=== PATIENT | male | born 1975 | race Caucasian/White ===

== ENCOUNTER 2018-01-16 08:00 | Outpatient (CLI) | payer OTHER ==
[2018-01-16 12:16] LABS: BASOPHILS % (AUTO) 0.6 %; EOSINOPHILS # (AUTO) 0.1 10^3/uL (0.0-0.7); EOSINOPHILS % (AUTO) 1.8 %; HGB - HEMOGLOBIN 15.8 g/dL (14.0-18.0); LYMPHOCYTES # (AUTO) 1.9 10^3/uL (1.5-3.5); LYMPHOCYTES % (AUTO) 24.6 %; MEAN CORPUSCULAR HEMOGLOBIN 32.5 pg (27.0-31.0); MEAN CORPUSCULAR HGB CONC 34.2 g/dL (32.0-36.0); MEAN CORPUSCULAR VOLUME 94.9 fL (80.0-94.0); MEAN PLATELET VOLUME 8.1 fL (7.4-11.4); MONOCYTES # (AUTO) 0.7 10^3/uL (0.0-1.0); MONOCYTES % (AUTO) 9.3 %; NEUTROPHILS # (AUTO) 4.9 10^3/uL (1.5-6.6); NEUTROPHILS % (AUTO) 63.7 %; PLT - PLATELET COUNT 218 10^3/uL (130-450); RED BLOOD COUNT 4.87 10^6/uL (4.70-6.10); WHITE BLOOD COUNT 7.8 x10^3/uL (4.8-10.8)
[2018-01-16 12:31] LABS: ALBUMIN 4.7 g/dL (3.2-5.5); ALBUMIN/GLOBULIN RATIO 1.7 (1.0-2.2); ALKALINE PHOSPHATASE 71 IU/L (42-121); ALT ALANINE AMINOTRANSFERASE 19 IU/L (10-60); AST ASPARTATE AMINOTRANSFERASE 29 IU/L (10-42); BILIRUBIN,TOTAL 0.7 mg/dL (0.2-1.0); BUN - BLOOD UREA NITROGEN 14 mg/dL (6-20); CALCIUM 9.3 mg/dL (8.5-10.3); CARBON DIOXIDE - CO2 23 mmol/L (21-32); CHLORIDE 104 mmol/L (101-111); CHOL/HDL RATIO 5.5 (<5.0); CHOLESTEROL 224 mg/dL; CREATININE 0.8 mg/dL (0.6-1.2); GFR - MDRD 106 (>89); GLUCOSE 90 mg/dL (70-100); HDL CHOLESTEROL 41 mg/dL; LDL CHOLESTEROL,CALCULATED 132 mg/dL; LDL/HDL RATIO 3.2 (<3.6); SODIUM 138 mmol/L (135-145); TOTAL PROTEIN 7.5 g/dL (6.7-8.2); VLDL CHOLESTEROL 51 mg/dL
== END 2018-01-16 08:01 | disposition home or self-care (01) ==
LOC: LAB.WCP 08:00
PROVIDERS: ATTEND Physician Assistant Medical
DX: Z00.00 Encounter for general adult medical examination without abnormal findings (principal); I10 Essential (primary) hypertension; E78.5 Hyperlipidemia, unspecified; Z12.5 Encounter for screening for malignant neoplasm of prostate
CPT/HCPCS: 36415; 80053; 80061; 83721; 84153; 84443; 85025

== ENCOUNTER 2020-09-25 18:39 | Emergency (ER) | payer MEDICAID, OTHER ==
[2020-09-25 18:45] VITALS: BP 158/97
[2020-09-25] MEDS ORDERED: BACITRACIN ZINC OINT 1 PACKET TOP STA (18:55)
[2020-09-25] MEDS ORDERED: LIDOCAINE 1%-EPI 1:100000 20 ML MDV SUBQ STA (18:55)
--- NOTE | 2020-09-25 19:17 | ED Physician Documentation ---
History of Present Illness - Stated complaint Stated Complaint: RT SIDE FACE LAC - Chief complaint Chief Complaint: Laceration - History obtained from History obtained from: Patient - History of Present Illness Timing: Today Pain level max: 0 Pain level now: 0 - Additonal information Additional information: 45-year-old male presents to the emergency department stating that he sustained a laceration to the right cheek when he tried to lift his dog out of his semitruck tonight. Nothing makes it better or worse. Tetanus up-to-date. No other injuries Review of Systems Constitutional: denies: Fever, Chills Neurologic: denies: Focal weakness, Numbness PD PAST MEDICAL HISTORY - Past Medical History Cardiovascular: Hypertension - Past Surgical History General: Appendectomy Ortho: Spine surgery - Present Medications Home Medications: Ambulatory Orders Medication Instructions Recorded Confirmed No Known Home Medications 09/25/20 09/25/20 - Allergies Allergies/Adverse Reactions: Allergies Allergy/AdvReac Type Severity Reaction Status Date / Time Penicillins Allergy Unknown Verified 09/25/20 18:42 - Social History Does the pt smoke?: Yes Smoking Status: Current every day smoker Does the pt drink ETOH?: No Does the pt have substance abuse?: No - Immunizations Immunizations are current?: Yes PD ED PE NORMAL - Vitals Vital signs reviewed: Yes - General General: Alert and oriented X 3, No acute distress - HEENT HEENT: PERRL, EOMI, Moist mucous membranes - Neck Neck: Supple, no meningeal sign - Respiratory Respiratory: No respiratory distress - Derm Derm: Warm and dry - Neuro Neuro: Alert and oriented X 3 PD ED PE EXPANDED - HEENT HEENT Visual: 1 - laceration (2 cm, linear. Neurovascular intact. Subcutaneous) Results - Vitals Vitals: Vital Signs - 24 hr 09/25/20 18:42 Temperature 37 C Heart Rate 112 H Respiratory 16 Rate Blood Pressure 158/97 H O2 Saturation 98 Oxygen O2 Source Room air Procedures - Laceration (location) Right cheek Length in cm: 2 Wound type: Linear, Into subcut fat, Clean Neurovascular status: Sensory intact, Motor intact, Vascular intact Anesthesia: Lidocaine 1% with epi Wound Preparation: Irrigated copiously NS, Wound explored, To the base Skin layer closure: Nylon, Interrupted, Size #-0 - enter number (5) Other: Patient tolerated well, No complications, Neurovascular intact, Tetanus UTD Complexity: Simple PD MEDICAL DECISION MAKING - ED course Complexity details: considered differential, d/w patient ED course: Laceration repaired. Tolerated well. Warnings of infection and instructions on wound care given at bedside. Also counseled on how to minimize scarring. Patient counseled regarding signs and symptoms for which I believe and urgent re-evaluation would be necessary. Patient with good understanding of and agreement to plan and is comfortable going home at this time This document was made in part using voice recognition software. While efforts are made to proofread this document, sound alike and grammatical errors may occur. Departure - Departure Disposition: 01 Home, Self Care Clinical Impression: Facial laceration Qualifiers: Encounter type: initial encounter Qualified Code(s): S01.81XA - Laceration without foreign body of other part of head, initial encounter Condition: Good Instructions: ED Laceration Facial Sutr Tape Follow-Up: Sloane Pablo PA-C [Primary Care Provider] - Within 1 week Comments: Return if you notice redness, swelling or drainage from the wound. Keep the wound clean. The sutures should be removed in approximately 5 days with your doctor or here. Discharge Date/Time: 09/25/20 19:27
== END 2020-09-25 19:27 | disposition home or self-care (01) ==
LOC: ED 18:39
DX: S01.411A Laceration without foreign body of right cheek and temporomandibular area, initial encounter (principal); W54.1XXA Struck by dog, initial encounter; I10 Essential (primary) hypertension; F17.200 Nicotine dependence, unspecified, uncomplicated
CPT/HCPCS: 12011; 99282; A9270

== ENCOUNTER 2024-04-18 19:37 | Emergency (ER) | payer MEDICAID ==
[2024-04-18 20:34] VITALS: BP 128/95; O2SAT 97
--- NOTE | 2024-04-18 22:06 | ED Physician Documentation ---
PD HPI SKIN - Stated complaint Stated Complaint: RT LOWER BACK BUMP - Chief complaint Chief Complaint: Wound - History obtained from History obtained from: Patient - Additional information Additional information: The pt comes to the ED with CC of "bump near my anus", and is concerned that a tick may have gotten in there. He states he just came back from a backpacking trip in [facility], and that there were lots of ticks over there. He has had tick bites before, and noticed a bump when he was washing today. Since he can't see what is there, he wanted to get checked. He has noticed some clear drainage coming from the area. No other complaints at this time. PD PAST MEDICAL HISTORY - Past Medical History Past Medical History: Yes Cardiovascular: Hypertension - Past Surgical History Past Surgical History: Yes General: Appendectomy Ortho: Spine surgery - Present Medications Home Medications: Ambulatory Orders Medication Instructions Recorded Confirmed No Known Home Medications 09/25/20 04/18/24 - Allergies Allergies/Adverse Reactions: Allergies Allergy/AdvReac Type Severity Reaction Status Date / Time lisinopril Allergy Unknown Verified 04/18/24 20:27 naproxen [From Aleve] Allergy Unknown Verified 04/18/24 20:27 Penicillins Allergy Unknown Verified 04/18/24 20:27 - Social History Does the pt smoke?: Yes Smoking Status: Current every day smoker Does the pt drink ETOH?: No Does the pt have substance abuse?: No - Immunizations Immunizations are current?: Yes - POLST Patient has POLST: No PD ED PE NORMAL - Vitals Vital signs reviewed: Yes - General General: Alert and oriented X 3, No acute distress, Well developed/nourished - HEENT HEENT: Atraumatic, EOMI, Moist mucous membranes - Neck Neck: Supple, no meningeal sign - Respiratory Respiratory: No respiratory distress - Rectal Rectal: Other (External only: Tiny, approx 1 mm, chronic-appearing skin opening in the midline, about 1 cm posterior to the anus. Mild induration with small amount of serous fluid expressible. No erythema. No FB.) - Derm Derm: Normal color, Warm and dry, No rash - Extremities Extremities: No deformity - Neuro Neuro: Alert and oriented X 3 - Psych Psych: Normal mood, Normal affect Results - Vitals Vitals: Oxygen O2 Source Room air PD Medical Decision Making - ED course Complexity details: considered differential, d/w patient ED course: I d/w pt that he appears to have a draining perianal gland, but that there is no sign of infection or foreign material of any kind. This is not consistent with a tick bite or an abscess. I also do not think it represents a fistula, based on the drainage. We have discussed doing Epsom Salt soaks and following up with his PCP for further concerns. Departure - Departure Disposition: 01 Home, Self Care Clinical Impression: Sweat gland cyst Condition: Stable Comments: Your examination shows what is either an inflamed sweat gland or oil gland adjacent to your anal area that has become a little inflamed and is draining. It does not appear infected and the drainage is clear. There is no evidence of a bite or any burrowing insect or other foreign material. There is a small hole in the top that is draining and will most likely stop on its own. You may take hot Epsom salt soaks to help encourage resolution. Please follow-up with your primary doctor as needed. Forms: PCP List Discharge Date/Time: 04/18/24 22:12
== END 2024-04-18 22:12 | disposition home or self-care (01) ==
LOC: ED 19:37
DX: L74.8 Other eccrine sweat disorders (principal); I10 Essential (primary) hypertension; F17.200 Nicotine dependence, unspecified, uncomplicated
CPT/HCPCS: 99281; 99282